=== PATIENT | male | born 1970 | race Caucasian/White ===

== ENCOUNTER 2020-08-24 08:50 | Day surgery (SDC) | payer BC ==
--- NOTE | 2020-08-21 15:14 | HP ---
DATE OF SURGERY: 08/24/2020 HISTORY OF PRESENT ILLNESS: The patient is a 49 year-old with polycythemia, history of some sleep apnea. He has had some rectal bleeding over a day and a half and tapered off according to the patient. Family history uncle with some colon polyps, had some family members with diverticulosis problems. PAST MEDICAL HISTORY: Diabetes, sleep apnea, hypertension, gout. PAST SURGICAL HISTORY: It looks like he had a colonoscopy years ago by Dr. Pereira in 2009. MEDICATIONS: Glipizide, Allopurinol. ALLERGIES: CODEINE. PENICILLIN. FAMILY HISTORY: Diabetes. Hypertension. Uncle with some colon polyps, had some family members with diverticulosis problem. SOCIAL HISTORY: He chews tobacco. Denies alcohol abuse. REVIEW OF SYSTEMS: Fourteen systems reviewed pertinent for as noted above and per admission assessment. No chest pain or palpitations. Other systems negative or noncontributory as above and per preadmission questionnaire. PHYSICAL EXAMINATION: GENERAL: No acute distress. HEENT: Sclerae nonicteric. NECK: No JVD. CHEST: Equal excursion, nonlabored breathing. CVS: Regular rate and rhythm. ABDOMEN: Soft. No peritoneal signs. EXTREMITIES: No significant edema. NEURO: Alert, moving extremities symmetrically. RECTAL: Deferred timed to endoscopy exam. PSYCH: Appropriate mood and affect. IMPRESSION: History of some rectal bleeding unclear etiology. It could have been diverticular source or other etiology. Either way he is in need of follow up colonoscopy for rectal bleeding for further evaluation. Risks and benefits explained in detail including but not limited to bleeding or infection, risk of bowel injury or perforation possibly requiring open procedure, risk of missed or nondiagnosis or incomplete exam possibly requiring barium enema, other studies or procedures, general risk of anesthesia or sedation, risk of bowel prep but not limited to. Consent obtained, will proceed with outpatient colonoscopy for rectal bleeding with MAC anesthesia.
[2020-08-24] MEDS ORDERED: Lactated Ringers 1,000 ML IV SCH (09:30)
[2020-08-24] MEDS ORDERED: DIPRIVAN 200 MG/20 ML IV ONE ×3 (11:39→12:09)
[2020-08-24] MEDS ORDERED: Versed 2 MG/2 ML Injection ONE (11:39)
[2020-08-24] MEDS ORDERED: LIORESAL 10 MG PO ONE (12:15)
[2020-08-24] MEDS ORDERED: NEURONTIN 300 MG PO ONE (12:15)
[2020-08-24 12:47] VITALS: O2SAT 99
[2020-08-24 12:51] VITALS: BP 132/78; PULSE 58
--- NOTE | 2020-08-24 13:32 | OP ---
SURGERY DATE/TIME: 08/24/2020 1142 PREOPERATIVE DIAGNOSIS: History of rectal bleeding, need for colonoscopy. POSTOPERATIVE DIAGNOSES: 1) Moderate left colon diverticulosis. 2) Fair bowel prep. 3) ASA Class III. 4) Small early polyps versus hyperplastic lesion rectosigmoid colon x2. 5) Small internal and external hemorrhoids. 6) Very tortuous colon. PROCEDURES: 1) Colonoscopy to cecum. 2) Hot biopsy polypectomy removal of small early polyps versus hyperplastic lesion rectosigmoid colon x2. SURGEON: Dr. Dedrick Melvin. ANESTHESIA: MAC. ESTIMATED BLOOD LOSS: Minimal. INDICATIONS: As noted above. Risks and benefits explained in detail but not limited to and consent obtained. DESCRIPTION OF PROCEDURE AND FINDINGS: The patient is taken to the endoscopy room. MAC anesthesia introduced. After official time out and no disagreement with planned procedure, digital rectal exam did not reveal any rectal masses. He did have small internal and external hemorrhoids. Video colonoscope inserted and passed up through the tortuous sigmoid, descending, transverse and ascending colon. With external pressure, just 3 or 4 cm short of being able to visualize the cecum completely. The patient placed on his back and two different staff members pushing pressure, the scope was able to be passed to the cecum. Appendiceal orifice and valve photo documented. Scope was then carefully withdrawn over the next 8 minutes. There were no signs of any large polyps, masses or obstructing lesions. He did have a fair amount of liquidy stool suction irrigated as clear as possible just slightly limiting the exam for small lesions. The scope was carefully withdrawn. He had moderate to severe diverticulosis in the left colon. He had some small internal and external hemorrhoids. There were no signs of any large polyps, masses or obstructing lesions. Whether he had some rectal bleeding from the diverticula or whether he bled from irritated internal hemorrhoid is unclear but he had no active bleeding currently. There were two small 1 to 2 mm size early polyp versus hyperplastic lesion in rectosigmoid colon removed with hot biopsy forceps and brief bursts of cautery. Good hemostasis noted. Otherwise the scope is withdrawn. There were no signs of any large polyps, masses or obstructing lesions. Findings discussed with the family over the phone as this hospital still does not let family members in.
== END 2020-08-24 12:52 | disposition home or self-care (01) ==
LOC: SDC 08:50
PROVIDERS: ATTEND Surgery
DX: K57.30 Diverticulosis of large intestine without perforation or abscess without bleeding (principal); Z09 Encounter for follow-up examination after completed treatment for conditions other than malignant neoplasm; Z87.19 Personal history of other diseases of the digestive system; K64.4 Residual hemorrhoidal skin tags; K64.8 Other hemorrhoids; K63.5 Polyp of colon; E11.9 Type 2 diabetes mellitus without complications; I10 Essential (primary) hypertension; G47.30 Sleep apnea, unspecified; Z79.899 Other long term (current) drug therapy
CPT/HCPCS: 82947; 88305; J2250; J2704